=== PATIENT | female | born 1980 | race Caucasian/White ===

== ENCOUNTER 2018-03-29 09:46 | Day surgery (SDC) | payer OTHER ==
[2018-03-26 13:21] VITALS: BMI 21.8
[2018-03-29] MEDS ORDERED: MIDAZOLAM HCL 2 MG/2 ML SINGLE DOSE VIAL ONE (12:00)
--- NOTE | 2018-03-29 12:06 | HP ---
History & Physical Update - History History: No Change Currently as noted:: Missed Ab - Physical Physical: No Change - Assessment Assessment: No Change - Plan Plan: No Change Currently as noted:: Suction, D&C- surgical Tx of missed Ab
[2018-03-29] MEDS ORDERED: DEXAMETHASONE SOD PHOSPHATE 4 MG/1 ML VIAL ONE (12:19)
[2018-03-29] MEDS ORDERED: PROPOFOL 20 ML ONE (12:21)
[2018-03-29] MEDS ORDERED: LIDOCAINE HCL/PF 2% SDV 5ML VIAL ONE (12:21)
--- NOTE | 2018-03-29 12:44 | OP ---
Operative Note - Note: Operative Date: 03/29/18 Pre-Operative Diagnosis: Missed Ab Operation: Surgical Tx of missed Ab, suction/D&C Findings: Small AV uterus, POC on suction curettage Post-Operative Diagnosis: Same as Pre-op Surgeon: Cj Brown Anesthesiologist/SHOTBLAST OPERATOR: Reddy Conroy Anesthesia: General Specimens Removed: POC Estimated Blood Loss (mls): 30 Blood Volume Replaced (mls): 0 Fluid Volume Replaced (mls): 200 Operative Report Dictated: Yes
[2018-03-29] MEDS ORDERED: ONDANSETRON 4 MG/2 ML VIAL IVPUSH PRN (12:45)
[2018-03-29] MEDS ORDERED: oxyCODONE HCL 5 MG TABLET PO PRN (12:45)
[2018-03-29] MEDS ORDERED: LACTATED RINGERS SOLUTION 1,000 ML IV SCH (12:45)
[2018-03-29 13:16] VITALS: TEMP 98
[2018-03-29 15:18] VITALS: BP 104/55; PULSE 59
--- NOTE | 2018-03-29 20:19 | OP ---
DATE OF OPERATION: 03/29/2018 PREOPERATIVE DIAGNOSIS: Missed . POSTOPERATIVE DIAGNOSIS: Missed . PROCEDURE: Surgical treatment of missed , suction dilation and curettage. SURGEON: Rolly Luna MD AIRBORNE OPERATIONS SUPERINTENDENT: None. ANESTHESIOLOGIST: Reddy Conroy MD ANESTHESIA: General. COMPLICATIONS: None. ESTIMATED BLOOD LOSS: 30 mL. INTRAVENOUS FLUIDS: 200 mL. PATHOLOGY: Products of conception. FINDINGS: Examination under anesthesia revealed a small anteverted uterus with no pelvic or adnexal masses. Products of conception were noted on suction curettage. No retained tissue was noted postoperatively. PROCEDURE: The patient was met preoperatively. Risks, benefits, and alternatives of surgery were discussed in detail. All questions were answered. The patient was then brought to the OR with the IV running. She was placed on the surgical table in the supine position. The general anesthesia was achieved without difficulty. The patient was then placed in a dorsal lithotomy position using adjustable Alejandro stirrups. She was examined under anesthesia with the findings as described above. The timeout was conducted as per standard protocol. The patient was then prepped and draped in the usual sterile fashion. A sterile speculum was introduced inside the vagina with good visualization of the cervix. The cervix was grasped with a single-toothed tenaculum. The cervical os was dilated to accommodate a size 21 Mcmanus dilator. A 7-mm suction curette was used to remove the products of conception. Once the suction curettage was completed, a sharp curette was used to confirm no retained products of conception. The instruments were then removed from the patient. Sponge, lap, and needle counts were correct. The patient was noted to have good hemostasis. She was returned to the supine position. The patient was then transferred to the recovery room in stable condition and awake. ROLLY LUNA M.D. [id number]
--- NOTE | 2018-03-30 17:08 | PATH ---
Surgical Pathology Report Patient Name: REJI GILL Med. Rec. #: [id number] /Age/Gender: 1980 (Age: 37) / F Account: [id number] Location: [facility] SURGICAL Taken: 03/29/2018 Received: 03/29/2018 Reported: 03/30/2018 Physicians: Cj Brown M.D. Specimen(s) Received PRODUCTS OF CONCEPTION Clinical History Missed Final Diagnosis PRODUCTS OF CONCEPTION, DILATION AND CURETTAGE: IMMATURE CHORIONIC VILLI AND SCANT DECIDUA CONSISTENT WITH PRODUCTS OF CONCEPTION. Electronically Signed Anna Melissa M.D. Gross Description Received in formalin labeled "products of conception," is an 8.0 x 6.0 x 0.9 cm aggregate of carr red soft tissue fragments. Villous tissue is identified. No somatic tissue is identified. A bilingual sales representative portion is submitted in one cassette. /03/29/2018 saudi03/29/2018
== END 2018-03-29 14:45 | disposition home or self-care (01) ==
LOC: JASU-SURG 09:46
PROVIDERS: ATTEND Obstetrics & Gynecology
PROC: 10D17ZZ Extraction of Products of Conception, Retained, Via Natural or Artificial Opening (ICD-10-PCS; principal; 2018-03-29 11:00)
DX: O02.1 Missed abortion (principal)
CPT/HCPCS: 86850; 86900; 86901; 88305-TC; 94760

== ENCOUNTER 2019-06-24 04:50 | Inpatient (IN) | payer OTHER ==
[2019-06-24 05:47] VITALS: BMI 27.3
[2019-06-24] MEDS ORDERED: DEXTROSE 5%-LACTATED RINGERS 1,000 ML IV ONE (06:30)
[2019-06-24 06:47] LABS: BASO % 0.3 % (0-2.0); HEMATOCRIT 40.3 % (32.4-45.2); HEMOGLOBIN 13.7 GM/dL (10.7-15.3); LYMPH % 8.3 % (8-40); MCH 33.8 pg (25.7-33.7); MEAN CELL VOLUME 99.6 fl (80-96); MEAN PLT VOLUME 8.5 fl (7.5-11.1); MONO % 3.5 % (3.8-10.2); NEUT % 87.9 % (42.8-82.8); PLATELET COUNT 238 K/MM3 (134-434); RBC 4.05 M/mm3 (3.60-5.2); WHITE BLOOD COUNT 16.2 K/mm3 (4.0-10.0)
[2019-06-24] MEDS ORDERED: BUTORPHANOL TARTRATE 1 MG/ML VIAL IVPUSH ONE (07:14)
[2019-06-24] MEDS ORDERED: PROMETHAZINE HCL 25 MG/1 ML VIAL IVPUSH ONE (07:14)
[2019-06-24] MEDS ORDERED: DEXTROSE 5%-LACTATED RINGERS 1,000 ML IV SCH (07:19)
--- NOTE | 2019-06-24 07:20 | HP ---
Past Medical History - Primary Care Physician PCP:: Rickie Lucero - Admission Chief Complaint: 40 weeks, labor History of Present Illness: 38 yo f g 2 p1 0 1 0 40.1 weeks, in labor , cx 2 cm 80 vx -1 mi, fhr cat 1 , irregular contraction, no rom, no bleeding , no fever AMA with low risks [id number] History Source: Patient Limitations to Obtaining History: No Limitations - Past Medical History ...: 2 ...Para: 0 ...Term: 0 ...: 0 ...Spon : 1 ...Induced : 0 ...Multiple Gestation: 0 ...LMP: 09/17/18 ... Weeks Gestation by Dates: 40.1 ...EDC by Dates: 06/23/19 - Past Surgical History Hx Myomectomy: No Hx Transabdominal Cerclage: No - Smoking History Smoking history: Never smoked Have you smoked in the past 12 months: No - Alcohol/Substance Use Hx Alcohol Use: No - Social History Usual Living Arrangement: Yes: With Spouse History of Recent Travel: No Home Medications - Allergies Allergies/Adverse Reactions: Allergies Allergy/AdvReac Type Severity Reaction Status Date / Time No Known Allergies Allergy Verified 06/24/19 06:51 - Home Medications Home Medications: Ambulatory Orders Folic Acid 1 mg PO DAILY 06/24/19 Vitamins (Sjr) - 1 tab PO DAILY 06/24/19 Review of Systems - Review of Systems Constitutional: reports: No Symptoms Eyes: reports: No Symptoms HENT: reports: No Symptoms Neck: reports: No Symptoms Cardiovascular: reports: No Symptoms Respiratory: reports: No Symptoms Gastrointestinal: reports: No Symptoms Genitourinary: reports: No Symptoms Breasts: reports: No Symptoms Reported Musculoskeletal: reports: No Symptoms Integumentary: reports: No Symptoms Neurological: reports: No Symptoms Endocrine: reports: No Symptoms Hematology/Lymphatic: reports: No Symptoms Psychiatric: reports: No Symptoms Physical Exam - Maternity Vital Signs: Vital Signs Temperature 97.7 F 06/24/19 05:00 Pulse Rate 61 06/24/19 05:00 Respiratory Rate 20 06/24/19 05:00 Blood Pressure 104/70 06/24/19 05:00 O2 Sat by Pulse Oximetry (%) Constitutional: Yes: Well Nourished, No Distress, Calm Eyes: Yes: WNL, Conjunctiva Clear, EOM Intact HENT: Yes: WNL, Atraumatic, Normocephalic Neck: Yes: WNL, Supple, Trachea Midline Cardiovascular: Yes: WNL, Regular Rate and Rhythm Breast(s): Yes: WNL - Abdominal Exam/OB Fundal Height: 38 Number of Fetuses: Single Presentation: Vertex Contractions: Yes Regularity: Irregular Intensity: Mod/Strong Monitor Mode: External Heart Rate Location: [facility] Category: I Accelerations: Non-Uniform Decelerations: None - Vaginal Exam/OB Vaginal Bleediing: No Speculum Exam: No Dilatation (cm): 2 cm Effacement (%): 80 Amniotic Membrane Status: Intact Presentation: Vertex/Position Station: -1 - Physical Exam Musculoskeletal: Yes: WNL Extremities: Yes: WNL Edema: LLE: Trace, RLE: Trace Deep Tendon Reflex Grade: Normal +2 ...Motor Strength: WNL Psychiatric: Yes: WNL - Labs Lab Results: CBC, BMP 06/24/19 06:30 Hemorrhage Risk Assessment - Risk Factors Medium Risk Factors: Yes: None High Risk Factors: Yes: None Risk Score: 1 Risk Level: Medium Risk Problem List - Problems (1) Post term over 40 weeks Code(s): O48.0 - POST-TERM (2) Labor established Code(s): IJN5815 - (3) Advanced maternal age (AMA) in Code(s): QRC9475 - Assessment/Plan admit FHM pain management GBS negative
[2019-06-24 07:23] LABS: CALCIUM 8.9 mg/dL (8.5-10.1); CREATININE 0.8 mg/dL (0.55-1.3); POTASSIUM 3.9 mmol/L (3.5-5.1)
[2019-06-24 07:24] LABS: INR 0.91 (0.83-1.09); PROTHROMBIN TIME (PATIENT) 10.7 SEC (9.7-13.0)
[2019-06-24 07:27] LABS: ACTIVATED PTT 28.6 SECONDS (25.2-36.5)
[2019-06-24] MEDS ORDERED: PROMETHAZINE HCL 25 MG/1 ML VIAL IVPB ONE (07:30)
[2019-06-24] MEDS ORDERED: BUTORPHANOL TARTRATE 1 MG/ML VIAL IVPB ONE (07:30)
[2019-06-24] MEDS ORDERED: BUPIVACAINE HCL/PF 2.5 MG/ML - 30 ML VIAL IJ ONE (07:50)
[2019-06-24] MEDS ORDERED: FENTANYL/BUPIVACAINE/NS/PF - PCEA - 50 ML DISP.SYRIN EP ONE ×2 (08:08→12:56)
[2019-06-24] MEDS ORDERED: ELECTROLYTE-148 SOLN 1,000 ML IV SCH (08:45)
[2019-06-24] MEDS ORDERED: NALOXONE HCL 0.4 MG/ML VIAL IVPUSH PRN (09:43)
[2019-06-24] MEDS ORDERED: FENTANYL/BUPIVACAINE/NS/PF - PCEA - 50 ML DISP.SYRIN EP SCH (09:45)
[2019-06-24] MEDS ORDERED: OXYTOCIN 30 UNITS in 0.9% NS 30 UNIT/500 ML INFUS.BAG IVPB SCH (10:00)
[2019-06-24] MEDS ORDERED: OXYTOCIN 30 UNITS in 0.9% NS 30 UNIT/500 ML INFUS.BAG IVPB ONE (10:32)
[2019-06-24] MEDS ORDERED: LIDOCAINE HCL 1% PRESERVATIVE FREE - 30ML VIAL ONE (16:04)
[2019-06-24] MEDS ORDERED: OXYTOCIN 20 UNITS in 0.9% NS 20 UNIT/1,000 ML INFUS.BAG IV ONE (16:04)
[2019-06-24] MEDS ORDERED: BENZOCAINE 28 GM HEMORRHOIDAL OINTMENT TP PRN (17:56)
[2019-06-24] MEDS ORDERED: BENZOCAINE 20% 57 GM BOTTLE TP PRN (17:56)
[2019-06-24] MEDS ORDERED: BISACODYL 10 MG SUPP.RECT RC PRN (17:56)
[2019-06-24] MEDS ORDERED: WITCH HAZEL 50% (TUCKS) 40 PAD/JAR PAD TP PRN (17:56)
[2019-06-24] MEDS ORDERED: METHYLERGONOVINE MALEATE 0.2 MG/1 ML AMP IM PRN (17:56)
[2019-06-24] MEDS ORDERED: ACETAMINOPHEN 325 MG TABLET (FP) PO PRN (17:56)
[2019-06-24] MEDS ORDERED: D5W-LR W/ 20 UNITS OXYTOCIN 20 UNIT/1,000 ML INFUS.BAG IV SCH (18:00)
--- NOTE | 2019-06-24 18:02 | PN ---
Delivery - Delivery Vaginal Delivery: Spontaneous (head delivered .VALERIANO, no cord , ant. and post. shoulder delivered with no difficulty live baby girl 9/9 , placenta complete, no laceration, EBL 300cc, no complication) Type of Anesthesia: Epidural Episiotomy/Laceration: None EBL (cc): 300 Delivery, Single - Stages of Labor Date 1st Stage Initiatied: 06/24/19 Time 1st Stage Initiated: 05:00 Date 2nd Stage Initiated: 06/24/19 Time 2nd Stage Initiated: 15:25 Date of Delivery: 06/24/19 Time of Delivery: 16:25 Time Placenta Delivered: 16:28 - Condition of Infant General Merchandise Salesperson/Form Raiser Present: No Infant Gender: Female Weight: 6 lb 14 oz Position: Left, OA Total Hours ROM (Hrs/Mins): 3Hrs/28Mins - 1 Minute Total Score: 9 5 Minutes Total Score: 9 - Feeding Plan Initial Plan: Elected not to breastfeed exclusively throughout hospitalization
[2019-06-24] MEDS ORDERED: OXYTOCIN 20 UNITS in 0.9% NS 20 UNIT/1,000 ML INFUS.BAG IV SCH (18:15)
[2019-06-24] MEDS: FERROUS SO4 325 MG TABLET (FP) PO SCH (22:40)
[2019-06-25] MEDS: IBUPROFEN 600 MG TABLET (FP) PO PRN ×3 (08:40→19:22)
[2019-06-25 08:45] LABS: BASO % 0.1 % (0-2.0); EOS % 0.8 % (0-4.5); HEMATOCRIT 35.9 % (32.4-45.2); HEMOGLOBIN 12.4 GM/dL (10.7-15.3); LYMPH % 9.8 % (8-40); MCH 34.4 pg (25.7-33.7); MCHC 34.4 g/dl (32.0-36.0); MEAN PLT VOLUME 8.3 fl (7.5-11.1); MONO % 5.8 % (3.8-10.2); NEUT % 83.5 % (42.8-82.8); PLATELET COUNT 195 K/MM3 (134-434); RBC 3.59 M/mm3 (3.60-5.2); RDW 12.8 % (11.6-15.6); WHITE BLOOD COUNT 14.7 K/mm3 (4.0-10.0)
[2019-06-25] MEDS: PRENATAL VITAMINS W/ FOLIC ACID TABLET (FP) PO SCH (09:46)
[2019-06-25] MEDS: FERROUS SO4 325 MG TABLET (FP) PO SCH ×2 (09:46→21:43)
--- NOTE | 2019-06-25 14:54 | PN ---
Post Progress Note - Subjective Subjective: Patient without acute complaints. Reports tolerating oral intake without nausea or vomiting. Ambulating without dizziness. Denies fevers or chills. Pain well controlled with oral pain medication. without difficulty. Passing flatus. Post Day: 1 Type of Delivery: Vital Signs: Vital Signs Temperature 98.3 F 06/25/19 09:43 Pulse Rate 77 06/25/19 09:43 Respiratory Rate 20 06/25/19 09:43 Blood Pressure 105/73 06/25/19 09:43 O2 Sat by Pulse Oximetry (%) 100 06/24/19 18:05 Breast Exam: Yes: Soft Uterus: Yes: Fundus Firm Abdomen/GI: Yes: Abdomen soft Lochia: Yes: Rubra Lochia, amount: Small Perineum: Yes: Intact Activity: Ambulating - Labs Labs: CBC WBC 14.7 K/mm3 (4.0-10.0) H 06/25/19 08:10 RBC 3.59 M/mm3 (3.60-5.2) L 06/25/19 08:10 Hgb 12.4 GM/dL (10.7-15.3) 06/25/19 08:10 Hct 35.9 % (32.4-45.2) 06/25/19 08:10 MCV 100.0 fl (80-96) H 06/25/19 08:10 MCH 34.4 pg (25.7-33.7) H 06/25/19 08:10 MCHC 34.4 g/dl (32.0-36.0) 06/25/19 08:10 RDW 12.8 % (11.6-15.6) 06/25/19 08:10 Plt Count 195 K/MM3 (134-434) 06/25/19 08:10 MPV 8.3 fl (7.5-11.1) 06/25/19 08:10 Absolute Neuts (auto) 12.3 K/mm3 (1.5-8.0) H 06/25/19 08:10 Neutrophils % 83.5 % (42.8-82.8) H 06/25/19 08:10 Lymphocytes % 9.8 % (8-40) 06/25/19 08:10 Monocytes % 5.8 % (3.8-10.2) 06/25/19 08:10 Eosinophils % 0.8 % (0-4.5) D 06/25/19 08:10 Basophils % 0.1 % (0-2.0) 06/25/19 08:10 Nucleated RBC % 0 % (0-0) 06/25/19 08:10 Assessment/Plan 38yo s/p Doing well H/H stable Afebrile Bpos no need for rhoGam Female fetus cont. routine care plan d/c in am
[2019-06-25] MEDS ORDERED: SENNOSIDES/DOCUSATE COMBO (SENNA PLUS) TABLET (UD) PO PRN (22:00)
--- NOTE | 2019-06-26 07:29 | DS ---
Physical Exam-INDUSTRIAL EDITOR Vital Signs: Vital Signs Temperature 97.3 F L 06/25/19 22:00 Pulse Rate 66 06/25/19 22:00 Respiratory Rate 18 06/25/19 22:00 Blood Pressure 117/75 06/25/19 22:00 O2 Sat by Pulse Oximetry (%) 100 06/24/19 18:05 Constitutional: Yes: Well Nourished Eyes: Yes: WNL, Occular Prosthesis Neck: Yes: WNL Cardiovascular: Yes: WNL Respiratory: Yes: WNL Gastrointestinal: Yes: WNL, Normal Bowel Sounds External Genitalia: Yes: Normal ....Post : Yes: Uterus firm, Uterus non-tender Breast(s): Yes: WNL Musculoskeletal: Yes: WNL Extremities: Yes: WNL Integumentary: Yes: WNL Wound/Incision: Yes: Clean/Dry, Well Approximated Neurological: Yes: WNL, Alert, Oriented ...Motor Strength: WNL Psychiatric: Yes: WNL, Alert, Oriented Labs: CBC, BMP 06/25/19 08:10 06/24/19 06:05 Delivery - Delivery Vaginal Delivery: Spontaneous (head delivered .VALERIANO, no cord , ant. and post. shoulder delivered with no difficulty live baby girl 9/9 , placenta complete, no laceration, EBL 300cc, no complication) Type of Anesthesia: Epidural Episiotomy/Laceration: None EBL (cc): 300 Delivery, Single - Stages of Labor Date 1st Stage Initiatied: 06/24/19 Time 1st Stage Initiated: 05:00 Date 2nd Stage Initiated: 06/24/19 Time 2nd Stage Initiated: 15:25 Date of Delivery: 06/24/19 Time of Delivery: 16:25 Time Placenta Delivered: 16:28 - Condition of Infant Management Planner/Wind Farm Designer Present: No Infant Gender: Female Weight: 6 lb 14 oz Position: Left, OA Total Hours ROM (Hrs/Mins): 3Hrs/28Mins - 1 Minute Total Score: 9 5 Minutes Total Score: 9 - Feeding Plan Initial Plan: Elected not to breastfeed exclusively throughout hospitalization Discharge Summary Problems reviewed: Yes Reason For Visit: LABOR Current Active Problems Advanced maternal age (AMA) in (Acute) Labor established (Acute) Post term over 40 weeks (Acute) Procedures: Principal: Normal spontaneous vaginal delivery Hospital Course: uncomplicated Condition: Good - Instructions Diet, Activity, Other Instructions: Physical activity Resume your normal everyday activity as tolerated no heavy lifting or exercise until seen by your surgeon. You may walk unlimited wanda of and climb stairs. You may resume driving the car when you feel safe and comfortable behind the wheel. No sexual activity as instructed. Wound care If you have a bandage, leave it on, and keep dry for 48-72 hours. After that time discard the outer bandage. If they are tapes on the skin under the out of bandage leave them in place. They will peel off in the next 7 to 10 days. Do Not Peel them off. You may shower the day after surgery. If there are tapes present on the skin, you may shower over them. Diet There are no dietary restrictions. Eat healthy, high-fiber foods. Drink 6 to 8 glasses of liquid each day. This will assist in keeping your bowels are regular. Pain management You may take Tylenol or acetaminophen or Ibuprofen (for example, Motrin, Advil etc.) from my pain prescription medication is ordered should be taken as prescribed for moderate to severe pain. Call MD for any of the following: Severe pain not relieved by medication Fever of 101 or higher Excessive bleeding or drainage on dressing Inability to urinate Referrals: Cj Brown MD [Staff Physician] - Disposition: HOME - Home Medications Comprehensive Discharge Medication List: Ambulatory Orders Folic Acid 1 mg PO DAILY 06/24/19 Vitamins (Sjr) - 1 tab PO DAILY 06/24/19
[2019-06-26] MEDS: IBUPROFEN 600 MG TABLET (FP) PO PRN (08:38)
[2019-06-26] MEDS: FERROUS SO4 325 MG TABLET (FP) PO SCH (10:15)
[2019-06-26] MEDS: PRENATAL VITAMINS W/ FOLIC ACID TABLET (FP) PO SCH (10:15)
[2019-06-26 11:50] VITALS: BP 105/70; PULSE 70; TEMP 98.1
== END 2019-06-26 12:24 | disposition home or self-care (01) | DRG 807 ==
LOC: JLDR 04:50 → J3W 19:55
PROVIDERS: ADMIT Obstetrics & Gynecology; ATTEND Obstetrics & Gynecology
PROC: 10E0XZZ Delivery of Products of Conception, External Approach (ICD-10-PCS; principal; 2019-06-24)
DX: O48.0 Post-term pregnancy (principal); Z37.0 Single live birth; Z3A.40 40 weeks gestation of pregnancy
CPT/HCPCS: 36415; 59409; 80048; 85025; 85610; 85730; 86593; 86850; 86900; 86901; 87389